=== PATIENT | female | born 1975 | race Caucasian/White ===

== ENCOUNTER 2017-12-24 04:53 | Observation (INO) | payer SELFPAY ==
[~2017-12-24] VITALS: Ht 162.6 cm; Wt 136.6 kg
[~2017-12-24 04:53] MED LIST: HYDR12.56 PO; KCL10C PO
[2017-12-24 05:13] VITALS: BP 142/85; PULSE 93; RESP 18; TEMP 98.3; O2SAT 99
[2017-12-24] MEDS ORDERED: SODIUM CHLOR 0.9% 1000 ML INJ 1,000 ML IV ONE (05:35)
--- NOTE | 2017-12-24 05:38 | PD ---
HPI Chief Complaint: Flank/Kidney Pain Time Seen by Provider: 05:35 Travel History International Travel<30 days: No Contact w/Intl Traveler<30days: No Traveled to known affect area: No History of Present Illness HPI 22-year-old female presents to the emergency department for complaint of right- sided flank pain sudden onset yesterday with radiation to the right lower quadrant intermittently. Patient's had nausea. No fever. No vomiting. Patient is prior history of kidney stones and recurrent urinary tract infections. Patient yesterday drank cranberry juice without symptomatic relief. Patient did take a dose of Tylenol but no ibuprofen. Patient rates current pain 5/10 intensity but was 8/10 in intensity prior to arrival to the emergency department. Patient is prior history of uterine ablation and denies . PFS Past Medical History Narrative Medical Kidney stones, dysfunctional uterine bleeding, uterine ablation; occasional tobacco use occasional alcohol use; nursing notes reviewed Medical History: Denies Significant Hx Diminished Hearing: No Tetanus Vaccination: > 5 Years Influenza Vaccination: No ?: Not LMP: Ablation : 2 Para: 2 Past Surgical History Tonsillectomy: Yes Social History Alcohol Use: Yes (rare) Tobacco Use: Yes (occ) Substance Use: No Allergies-Medications (Allergen,Severity, Reaction): Coded Allergies: No Known Allergies (Unverified , 03/17/14) Reported Meds & Prescriptions Reported Meds & Active Scripts Active No Active Prescriptions or Reported Medications Review of Systems Except as stated in HPI: all other systems reviewed are Neg Physical Exam Narrative GENERAL: Well-developed well-nourished female in no acute distress no respiratory distress SKIN: Warm and dry. HEAD: Normocephalic. EYES: No scleral icterus. No injection or drainage. NECK: Supple, trachea midline. No JVD or lymphadenopathy. CARDIOVASCULAR: Regular rate and rhythm without murmurs, gallops, or rubs. RESPIRATORY: Breath sounds equal bilaterally. No accessory muscle use. GASTROINTESTINAL: Abdomen soft, non-tender, nondistended. MUSCULOSKELETAL: No cyanosis, or edema. BACK: Nontender without obvious deformity. Mild right-sided CVA tenderness to percussion and palpation. Data Data Last Documented VS Vital Signs Date Time Temp Pulse Resp B/P (MAP) Pulse Ox O2 Delivery O2 Flow Rate FiO2 12/24/17 05:13 98.3 93 18 142/85 (104) 99 MDM Medical Decision Making Medical Screen Exam Complete: Yes Emergency Medical Condition: Yes Medical Record Reviewed: Yes Differential Diagnosis Renal colic, obstructive uropathy, UTI, pyelonephritis, ectopic , biliary colic Narrative Course IV access obtained specimens collected and sent for resulting patient administered normal saline, Toradol 30 mg IV, Zofran 4 mg IV; specimen collected for UA [id number] hCG and CT kidney stone protocol ordered Scripts No Active Prescriptions or Reported Meds Nancy Cortez MD Dec 24, 2017 05:38
[2017-12-24] MEDS ORDERED: ONDANSETRON HCL 4 MG/2 ML VIAL IV PUSH ONE ×2 (05:45→12:00)
[2017-12-24] MEDS ORDERED: SODIUM CHLORIDE 0.9% FLUSH 10 ML FLUSH IVF PRN (05:45)
[2017-12-24] MEDS ORDERED: KETOROLAC TROMETHAMINE 30 MG/ML (IVP) VIAL IV PUSH ONE ×2 (05:45→12:00)
--- NOTE | 2017-12-24 06:31 | RADRPT ---
EXAM DATE/TIME: 12/24/2017 05:57 [facility] COMPARISON: No previous studies available for comparison. INDICATIONS : Right flank pain for 1 day. Hematuria. ORAL CONTRAST: No oral contrast ingested. RADIATION DOSE: 27.91 CTDIvol (mGy) ; Patient body habitus MEDICAL HISTORY : Renal calculi. SURGICAL HISTORY : Ablation ENCOUNTER: Initial ACUITY: 1 day PAIN SCALE: 9/10 LOCATION: Right flank TECHNIQUE: Volumetric scanning of the abdomen and pelvis was performed. Using automated exposure control and ad justment of the mA and/or kV according to patient size, radiation dose was kept as low as reasonably achievable to obtain optimal diagnostic quality images. DICOM format image data is available electro nically for review and comparison. FINDINGS: LOWER LUNGS: The visualized lower lungs are clear. LIVER: There is diffuse decreased attenuation to the liver. Focal hepatic lesion is not seen. SPLEEN: Normal size without lesion. PANCREAS: Within normal limits. KIDNEYS: There is moderate dilatation of the right collecting system. There is a 1.3 cm stone at the UPJ regio n. The more distal aspect of the right ureter is normal. The left kidney is normal. ADRENAL GLANDS: Within normal limits. VASCULAR: There is no aortic aneurysm. BOWEL/MESENTERY: The stomach, small bowel, and colon demonstrate no acute abnormality. There is no free intraperitone al air or fluid. ABDOMINAL WALL: Within normal limits. RETROPERITONEUM: There is no lymphadenopathy. BLADDER: No wall thickening or mass. REPRODUCTIVE: Within normal limits. INGUINAL: There is no lymphadenopathy or hernia. MUSCULOSKELETAL: Within normal limits for patient age. CONCLUSION: 1.3 cm stone at the right UPJ with moderate dilatation of the right collecting system. Blaise Barroso MD on December 24, 2017 at 6:26 Board Certified Radiologist. This report was verified electronically.
[2017-12-24 06:35] LABS: AUTOMATED NEUTROPHIL # 4.1 TH/MM3 (1.8-7.7); BASOPHIL % 0.5 % (0.0-2.0); EOSINOPHIL # 0.1 TH/MM3 (0-0.4); HEMATOCRIT 39.4 % (35.0-46.0); HEMOGLOBIN 13.1 GM/DL (11.6-15.3); LYMPH % 30.2 % (9.0-44.0); MEAN CELL VOLUME 81.2 FL (80.0-100.0); MEAN CORPUSCULAR HEMOGLOBIN 26.9 PG (27.0-34.0); MEAN CORPUSCULAR HGB CONC 33.1 % (32.0-36.0); MONOCYTE # 0.4 TH/MM3 (0-0.9); NEUT % 61.3 % (16.0-70.0); PLATELET COUNT 341 TH/MM3 (150-450); RED BLOOD COUNT 4.85 MIL/MM3 (4.00-5.30); RED CELL DISTRIBUTION WIDTH 13.5 % (11.6-17.2); WHITE BLOOD COUNT 6.6 TH/MM3 (4.0-11.0)
[2017-12-24 06:38] LABS: BLOOD, URINE LARGE (NEG); GLUCOSE,URINE NEG (NEG); KETONE, URINE TRACE mg/dL (NEG); NITRITE,URINE NEG (NEG); URINE LEUKOCYTE ESTERASE TRACE (NEG)
[2017-12-24 06:48] VITALS: BP 132/89; PULSE 90; RESP 18; TEMP 98.4; O2SAT 99
[2017-12-24 06:48] LABS: BILIRUBIN, URINE NEG (NEG)
[2017-12-24 06:49] LABS: BICARBONATE 27.5 MEQ/L (21.0-32.0); CALCIUM 8.7 MG/DL (8.5-10.1); MUCUS URINE OCC /lpf (OCC); URINE COLOR PINK (YELLW/STRAW)
[2017-12-24 06:50] LABS: BACTERIA, URINE FEW /hpf; RBC, URINE INNUM /hpf (0-3); SQUAMOUS EPITHELIAL CELL URINE 0-5 /hpf (0-5)
[2017-12-24 06:51] LABS: WBC, URINE 0-2 /hpf (0-5)
[2017-12-24 06:52] LABS: CREATININE 0.67 MG/DL (0.50-1.00)
[2017-12-24 07:41] VITALS: BP 136/80; PULSE 83; RESP 16; O2SAT 98
[2017-12-24 09:07] VITALS: BP 143/99; PULSE 84; RESP 16; TEMP 98.5; O2SAT 97
[2017-12-24] MEDS ORDERED: FAMOTIDINE 20 MG/2 ML VIAL ONE (10:06)
[2017-12-24] MEDS ORDERED: ceFAZolin 2 GM PREMIX 50 ML ONE (10:18)
[2017-12-24] MEDS ORDERED: LACTATED RINGER'S 1000 ML IV PRN (10:30)
[2017-12-24] MEDS ORDERED: INSULIN HUMAN REGULAR 1,000 UNITS/10 ML VIAL SQ PRN (10:30)
[2017-12-24] MEDS ORDERED: SODIUM CHLORID 0.9% 500 ML IV PRN (10:30)
[2017-12-24] MEDS ORDERED: POVIDONE IODINE 5% (ANTISEPSIS KIT) 4 APPLICATIONS EACH NARE PRN (10:30)
[2017-12-24] MEDS ORDERED: CHLORHEXIDINE GLUCONATE 2 % 1 PACK (2 CLOTHS) TOPICAL PRN (10:30)
[2017-12-24] MEDS ORDERED: METOPROLOL TARTRATE 25 MG TAB PO PRN (10:30)
[2017-12-24] MEDS ORDERED: IOHEXOL 350 MG/ML 50 ML BTL (for RAD DIAG) OTHER ONE (10:45)
--- NOTE | 2017-12-24 10:56 | PD.OP ---
Operative Report Date of Surgery: Dec 24, 2017 Preoperative Diagnosis: 8mm proximal right ureteral stone with hydronephrosis Postoperative Diagnosis: Same Procedure: Cystoscopy with right retrograde study and right double-J stent insertion Anesthesia: Gen. LMA Surgeon: Bobby Eugene Doctor Of Medicine(s): None Resident Surgeon: None Operation and Findings: 42-year-old female presented to the emergency room this morning with findings of any to 9 mm proximal right ureteral stone causing hydronephrosis. Decision was made to bring the patient to the operating room and undergo cystoscopy with right retrograde study and right double-J stent insertion. Risk and benefits were discussed. Which is willing to proceed. The patient brought the operating room and identified by myself as Lynne Riannajustinezonia. She was placed in the dorsal lithotomy position, prepped and draped in usual sterile fashion, received preprocedure antibiotics and general LMA anesthesia was administered. 22 Croatian cystoscope was inserted in the bladder heck cystoscopy did not reveal any abnormalities. The right ureteral orifice was identified and a 5 Croatian retrograde catheter was inserted into the right ureteral orifice and a retrograde pyelogram was performed. Stone was visualized in the proximal right ureter. A 0.35 sensor wire was then passed through the Pollack catheter with a good curl in the kidney. The catheter was removed. A 6 Croatian 22 cm right double-J stent was placed with a good curl in the kidney and bladder. The bladder was evacuated and she was awoken, extubated, and transferred to recovery in stable condition. She will need to undergo right extracorporeal shockwave lithotripsy in the future. Bobby Eugene DO Dec 24, 2017 10:56
[2017-12-24 11:35] VITALS: BP 115/77; PULSE 84; RESP 16; TEMP 98; O2SAT 99
[2017-12-24] MEDS ORDERED: PROPOFOL 200 MG/20 ML AMP IV ONE (12:00)
[2017-12-24] MEDS ORDERED: LIDOCAINE HCL 1% PF 5 ML SYRINGE OTHER ONE (12:00)
[2017-12-24] MEDS ORDERED: oxyCODONE/ACETAMINOPHEN 5 MG/325 MG TAB PO PRN (13:00)
[2017-12-24] MEDS ORDERED: MORPHINE SULFATE 2 MG/ML INJ IV PRN (13:00)
--- NOTE | 2017-12-24 13:27 | MB ---
cc: MAE NEWELL DATE OF CONSULTATION 12/24/2017 HISTORY OF PRESENT ILLNESS Ms. Keily Briceno is a 42-year-old female who presented with findings on a CT scan of an 8 mm proximal right ureteral stone causing hydronephrosis. The patient presents to the [facility] at this time. She has a history of stones in the past. PAST MEDICAL HISTORY 1. Prior history of kidney stones. 2. Hypothyroidism. PAST SURGICAL HISTORY Tonsillectomy. SOCIAL HISTORY Social drinker. History of smoking in the past but has quit. FAMILY HISTORY No history of stones. REVIEW OF SYSTEMS Notes right flank pain with some nausea. No fever or chills. The remaining systems were reviewed and are negative. PHYSICAL EXAMINATION GENERAL: An obese 42-year-old female in no acute stress. HEENT: Normocephalic, atraumatic. Pupils equal, round and reactive to light. Extraocular movements intact. NECK: Supple. HEART: Regular rate and rhythm. LUNGS: Clear. ABDOMEN: Soft, nontender, nondistended. There is right CVA tenderness noted. : Normal female external genitalia. EXTREMITIES: No clubbing, cyanosis or edema. IMAGING CT scan again showed a proximal 8 mm right ureteral stone with hydronephrosis. ASSESSMENT A 42-year-old female with an 8 mm proximal right ureteral stone causing hydronephrosis. RECOMMENDATIONS Recommend cystoscopy with right double-J stent insertion followed by extracorporeal shock wave lithotripsy as an outpatient. Thank you for the consult and allowing me to participate in the care of this patient. Mae HAGER/ANN /11:09 AM /1:14 PM
== END 2017-12-24 14:42 | disposition home or self-care (01) ==
LOC: PHED 04:53 → PHEDA 07:26 → PH3A 08:20
PROVIDERS: ADMIT Urology; ATTEND Urology
DX: N13.2 Hydronephrosis with renal and ureteral calculous obstruction (principal); E03.9 Hypothyroidism, unspecified; Z72.0 Tobacco use; Z87.440 Personal history of urinary (tract) infections; Z87.442 Personal history of urinary calculi
CPT/HCPCS: 00910; 52332; 74176; 76000; 80048; 81001; 84703; 85025; 96361; 96374; 96375; 99285; C1769; C2617; G0378; J0690; J1885; J2405; J3010; J7030; J7120; Q9967

== ENCOUNTER 2018-03-30 17:37 | Emergency (ER) | payer SELFPAY ==
[~2018-03-30] VITALS: Ht 162.6 cm; Wt 135.0 kg
[2018-03-30 17:39] VITALS: BP 147/91; PULSE 94; RESP 18; TEMP 98; O2SAT 97
--- NOTE | 2018-03-30 17:47 | PD ---
HPI Chief Complaint: Injury Time Seen by Provider: 17:44 Travel History International Travel<30 days: No Contact w/Intl Traveler<30days: No Traveled to known affect area: No History of Present Illness HPI 42-year-old female presents emergency department for evaluation of right ankle pain after a trip and fall down the movie theater stairs yesterday. Patient states she was ambulatory since, but the pain has become worse. It is now constant, moderate in severity. It does not radiate anywhere. It is exacerbated with flexion and extension of the right ankle. She has no other symptoms to report. [facility] Past Medical History Medical History: Denies Significant Hx Diminished Hearing: No ?: Not : 2 Para: 2 Past Surgical History Tonsillectomy: Yes Social History Alcohol Use: Yes (rare) Tobacco Use: Yes (occ) Substance Use: No Allergies-Medications (Allergen,Severity, Reaction): Coded Allergies: No Known Allergies (Unverified Allergy, Unknown, 03/30/18) Reported Meds & Prescriptions Reported Meds & Active Scripts Active Ibuprofen 800 Mg Tab 800 Mg PO Q8H PRN Review of Systems Except as stated in HPI: all other systems reviewed are Neg Physical Exam Narrative GENERAL: Obese female patient, ambulatory with an antalgic gait no acute distress. SKIN: Focused skin assessment warm/dry. HEAD: Normocephalic. EYES: No scleral icterus. No injection or drainage. NECK: Supple, trachea midline. No JVD or lymphadenopathy. CARDIOVASCULAR: Regular rate and rhythm without murmurs, gallops, or rubs. RESPIRATORY: Breath sounds equal bilaterally. No accessory muscle use. EXTREMITY: The right ankle is swollen and tender over the lateral aspect but the skin is intact and there is no ligamentous instability. There is no deformity. The foot and toes are warm and well-perfused. Sensation to pain and light touch is intact. Data Data Last Documented VS Vital Signs Date Time Temp Pulse Resp B/P (MAP) Pulse Ox O2 Delivery O2 Flow Rate FiO2 03/30/18 17:39 98.0 94 18 147/91 (109) 97 Orders Orders Ankle, Complete ([id number]) (03/30/18 ) Nick Bandage (03/30/18 18:11) Crutches (03/30/18 ) Ed Discharge Order (03/30/18 18:12) MDM Medical Decision Making Medical Screen Exam Complete: Yes Emergency Medical Condition: Yes Medical Record Reviewed: Yes Differential Diagnosis Sprain versus fracture versus contusion Narrative Course 42-year-old female presents emergency department for evaluation right ankle pain. X-ray imaging shows soft tissue swelling but no acute bony abnormality. Nick wrap is applied, patient is provided crutch instructions. She is discharged home with pain control and encouraged follow-up with primary care provider. She agrees to return immediately with acute worsening symptoms. Diagnosis Primary Impression: Right ankle sprain Qualified Codes: S93.401A - Sprain of unspecified ligament of right ankle, initial encounter Referrals: Primary Care Physician Patient Instructions: Ankle Sprain Exercises (GEN), General Instructions Additional Instructions: Nick wrap for support and comfort Follow-up with a primary care provider Weight-bear as tolerated Return immediately with acute worsening symptoms Med/Other Pt SpecificInfo: Prescription(s) given Scripts Ibuprofen (Ibuprofen) 800 Mg Tab 800 MG PO Q8H Y for Pain/Inflammation, #30 TAB 0 Refills Prov: Shanita Galvez 03/30/18 Disposition: 01 DISCHARGE HOME Condition: Stable Shanita Galvez March 30, 2018 17:47
--- NOTE | 2018-03-30 18:10 | RADRPT ---
EXAM DATE/TIME: 03/30/2018 17:54 [facility] COMPARISON: No previous studies available for comparison. INDICATIONS : Right ankle pain after fall down stairs. MEDICAL HISTORY : None. SURGICAL HISTORY : None. ENCOUNTER: Initial ACUITY: 1 day PAIN SCORE: 7/10 LOCATION: Right ankle. FINDINGS: Three view exam was performed of the right ankle. The bony structures are in normal alignment. No e vidence of fracture, dislocation. There is soft tissue swelling. The ankle mortise is intact. No ra diopaque foreign bodies are seen. Bony mineralization is normal. CONCLUSION: Soft tissue swelling without fracture. Raoul Elias MD on March 30, 2018 at 18:08 Board Certified Radiologist. This report was verified electronically.
[2018-03-30] MEDS ORDERED: IBUP1TAB7 PO (18:13)
== END 2018-03-30 18:22 | disposition home or self-care (01) ==
LOC: NEPK 17:37
DX: S93.401A Sprain of unspecified ligament of right ankle, initial encounter (principal); W10.9XXA Fall (on) (from) unspecified stairs and steps, initial encounter
CPT/HCPCS: 73610; 99283; E0113